=== PATIENT | female | born 1950 | race African-American/Black ===

== ENCOUNTER 2022-10-18 19:17 | Emergency (ER) | payer MEDICARE, SELFPAY ==
[2022-10-18] VITALS (12 sets, daily range): BP systolic 118–150; BP diastolic 61–84; PULSE 57–78; RESP 13–26; TEMP 36.2; O2SAT 98–100
--- NOTE | ~2022-10-18 | CT_ITS ---
EXAMINATION: CT brain wo con DATE: 10/18/2022 20:43 INDICATION: Syncope. Lightheadedness. Dizziness. TECHNIQUE: Computed tomography (CT) of the head was performed without intravenous contrast. The mA wa s adjusted according to patient size. Iterative reconstruction technique was employed. The dose-lengt h product was 605.33 mGy-cm. COMPARISON: None FINDINGS: There is no intracranial hemorrhage, acute infarction, or abnormal intracranial mass lesion . There are scattered areas of low attenuation in the cerebral white matter, which is within normal l imits for the patient's age. The ventricles are normal in size. There is mild mucosal thickening in t he paranasal sinuses. The orbits are normal. The mastoid air cells are normal. IMPRESSION: 1. Normal aging brain. Reviewed, dictated and finalized at location E. IMPRESSION: 1. Normal aging brain.
--- NOTE | ~2022-10-18 | CT_ITS ---
EXAMINATION: CT abdomen pelvis w con DATE: 10/18/2022 20:43 INDICATION: Abdominal pain. Vomiting. TECHNIQUE: Computed tomography (CT) of the abdomen and pelvis was performed with 100 mL Omnipaque 350 intravenous contrast. Automated exposure control and iterative reconstruction technique were employe d. The dose-length product was 1284.67 mGy-cm. COMPARISON: None. FINDINGS: The visualized portions of the lung bases demonstrate mild atelectasis. No pleural effusion . The heart size is normal. No pericardial effusion. The liver is normal. The gallbladder is distende d. The spleen, pancreas, and adrenal glands are normal. There are cysts in the kidneys measuring up t o 2.4 cm on the right. There is diverticulosis of the colon without evidence of diverticulitis. There are no dilated loops of bowel. The appendix is normal. There is a small sliding hiatal hernia. There are no pathologically enlarged lymph nodes. There is no ascites. There is severe thoracic and lumbar spondylosis. IMPRESSION: 1. Small sliding hiatal hernia. 2. Gallbladder distention, which may be secondary to fasting. Correlate with physical exam to exclude acute cholecystitis. Reviewed, dictated and finalized at location E. IMPRESSION: 1. Small sliding hiatal hernia. 2. Gallbladder distention, which may be secondary to fasting. Correlate with ph ysical exam to exclude acute cholecystitis.
--- NOTE | 2022-10-18 19:20 | ED.NAVMDI ---
HPI - Nausea/Vomiting/Diarrhea General Chief complaint: Nausea/Vomiting/Diarrhea Stated complaint: nausea/vomiting Time Seen by Provider: 10/18/22 19:19 History of Present Illness HPI Narrative: Patient is a 72-year-old female with history of hypertension, hyperlipidemia here with nausea, vomiting and syncope. She states she is feeling like her normal self earlier today and went to a pool [employer] with some friends. She states that she started feeling overheated, flushed light headed and nauseous. She vomited several times and had a syncopal episode at the pool [employer]. She denies any head injury. Bystanders note patient lost consciousness for about 1 minute and returned to baseline. She has continued nausea and vomiting. She denies chest pain or shortness of breath. No abdominal pain. No one else sick from the potluck food. No alcohol use today. She does endorse that she had a cervical procedure yesterday where they gave her injections for pain, her neck pain is doing well today. No seizure like activity. Related Data Allergies Allergy/AdvReac Type Severity Reaction Status Date / Time No Known Allergies Allergy Verified 10/18/22 19:31 Review of Systems Review of Systems: CONSTITUTIONAL: Denies fever, chills, or sweats. CARDIOVASCULAR: Denies chest pain, palpitations RESPIRATORY: Denies cough or dyspnea. GASTROINTESTINAL: Nausea, vomiting, Denies abdominal pain or diarrhea. GENITOURINARY: Denies dysuria or hematuria. SKIN: Denies rash or itching. MUSCULOSKELETAL: Denies back pain, joint pain, or myalgia. NEUROLOGIC: Denies headache, numbness, or weakness. Exam Narrative: GENERAL: Well-appearing, well-nourished, actively vomiting HEAD: Normocephalic, atraumatic. EYES: PERRLA and EOMI. ENT: Nares clear. Mucous membranes moist. NECK: Supple. CHEST: Clear to auscultation. No respiratory distress. HEART: Regular rate and rhythm. Normal peripheral pulses. ABDOMEN: Soft, nontender, nondistended. EXTREMITIES: Normal range of motion. No edema. SKIN: Warm, dry, no rash. NEURO: No focal deficits. Alert and oriented x3. PSYCH: Normal mood and affect. Course Course Emergency Course: Patient presented to the ED with complaint of nausea and vomiting. Vitals reviewed and appear stable. Physical exam revealed active vomiting, grossly non tender exam. No focal neurological deficits. Based on the patient's history and physical exam, my differential includes but is not limited to gastritis, gastroenteritis, cholecystitis, pancreatitis, appendicitis. Additionally will do syncope workup. Initial workup includes: CT head, troponins, abdominal lab workup, antiemetics. CT abdomen/pelvis. Patient reevaluated. No additional episodes of emesis. Lab work reviewed: CBC grossly unremarkable, creatinine 1.5, no baseline present. Troponin negative. Awaiting imaging. Imaging reviewed: Negative for acute findings. Distended gall bladder. No tenderness in this area. On reevaluation, the patient states that they are feeling much better. Repeat examination did not show any significant guarding or rebound. Patient tolerating PO. Discussed workup with patient. The patient was given strict return precautions, if they are to develop any worsening abdominal pain, vomiting, or blood in the vomit they are to return to the emergency department immediately. Patient verbally acknowledges understanding these directions. They were advised to follow-up with their PCP in 2 days. The patient verbalizes an understanding of the discharge instructions and agrees with plan. Vital Signs Vital signs: Vital Signs Temperature 97.2 F L 10/18/22 19:18 Pulse Rate 68 10/18/22 19:18 Respiratory Rate 26 H 10/18/22 19:18 Blood Pressure 150/61 H 10/18/22 19:18 Pulse Oximetry 100 10/18/22 19:18 Oxygen Delivery Room Air 10/18/22 19:18 Temperature 97.2 F L 10/18/22 19:18 Pulse Rate 59 L 10/18/22 20:15 Respiratory Rate 14 10/18/22 20:15 Blood Pres
--- NOTE | 2022-10-18 19:28 | ECG_ITS ---
Measurements Intervals [place] Rate: 56 P: 52 HI: 171 QRS: 12 QRSD: 89 T: 28 QT: 392 QTc: 381 Interpretive Statements SINUS BRADYCARDIA OTHERWISE NORMAL ECG NO PREVIOUS ECG AVAILABLE FOR COMPARISON Electronically Signed On 10-19-2022 10:05:06 CDT by Kush Gutiérrez M.D.
[2022-10-18] MEDS: ONDANSETRON INJ 4 MG/2 ML VIAL (19:32)
[2022-10-18 19:39] LABS: Glucose Point of Care 123 mg/dl (65-105)
[2022-10-18] MEDS: SODIUM CHLORIDE 0.9% IV 500 ML 999 ML IV CONT (19:39)
[2022-10-18 20:05] LABS: Basophils Absolute Auto 0.1 K/mm3 (0.0-0.1); Basophils Percent Auto 0.6 % (0.2-1.2); Eosinophils Absolute Auto 0.1 K/mm3 (0-0.3); Eosinophils Percent Auto 1.3 % (0-4.4); Hematocrit 34.6 % (37.0-47.0); Immature Granulocyte Absolute 0.03 K/mm3 (0.00-0.031); Immature Granulocyte Percent A 0.4 % (0-0.5); Lymphocytes Percent Auto 25.4 % (18.3-44.2); Mean Corpuscular HGB Conc 31.8 g/dl (32-36); Mean Corpuscular Hemoglobin 27.6 pg (26-34); Mean Corpuscular Volume 86.7 fl (80-100); Mean Platelet Volume 9.4 fl (7.4-10.4); Monocytes Absolute Auto 0.6 K/mm3 (0.1-0.6); Neutrophils Absolute Auto 5.1 K/mm3 (1.3-6.7); Neutrophils Percent Auto 64.3 % (45.5-73.1); Platelet Count Result 162 k/mm3 (150-375); Red Blood Count 3.99 M/mm3 (4.2-5.4); Red Cell Distribution Width 15.9 % (11.5-14.5); White Blood Count 7.9 K/mm3 (4.5-10.0)
[2022-10-18 20:17] LABS: Alanine Aminotransferase 20 U/L (6-35); Alkaline Phosphatase 77 U/L (38-126); Anion Gap 7 mmol/L (8-16); Aspartate Amino Transferase 28 U/L (14-36); Bilirubin,Total 0.5 mg/dL (0.2-1.3); Blood Urea Nitrogen 33 mg/dL (7-17); Calcium 9.2 mg/dL (8.4-10.2); Carbon Dioxide 22 mmol/L (22-30); Chloride 103 mmol/L (98-107); Estimated CRCL calculation 34 ml/min; Estimated Glomerular Filt Rate 41; Glucose 106 mg/dL (65-110); Lipase 46 U/L (23-300); Potassium 3.7 mmol/L (3.4-5.0); Sodium 132 mmol/L (137-145)
[2022-10-18 20:28] LABS: Troponin I < 0.012 ng/mL (0.000-0.034)
[2022-10-18 21:02] LABS: Appearance Urine Clear (Clear); Bacteria Urine None Seen /hpf; Bilirubin Urine Negative (Negative); Blood Urine Negative (Negative); Color Urine Yellow (Yellow); Glucose Urine UA Negative (Negative); Ketones Urine Negative (Negative); Leukocyte Esterase Ur Trace LEU/UL (Negative); Nitrate Urine Negative (Negative); Non Pathogenic Casts 0-2; Protein Urine Negative (Negative); RBC Urine 0-2 /hpf (0-2); Specific Grav Ur 1.019 (1.001-1.035); Squamous Epithelial Cell Urine None seen /hpf (Few); Urobilinogen Urine 0.2 mg/dL (<2.0); WBC Urine 0-5 /hpf; pH Urine 5.5 (5.0-9.0)
[2022-10-18 21:05] LABS: Add Urine Microscopic? YES
--- NOTE | 2022-10-18 21:12 | PC.NURSE ---
Patient given crackers and water for PO challenge.
== END 2022-10-18 21:33 | disposition home or self-care (01) ==
PROVIDERS: Emergency Provider Student in an Organized Health Care Education/Training Program; PCP Internal Medicine
DX: R11.2 Nausea with vomiting, unspecified (principal); R55 Syncope and collapse; I10 Essential (primary) hypertension; E78.5 Hyperlipidemia, unspecified; R00.1 Bradycardia, unspecified; K44.9 Diaphragmatic hernia without obstruction or gangrene; R93.2 Abnormal findings on diagnostic imaging of liver and biliary tract
CPT/HCPCS: 36415; 70450; 74177; 80053; 81001; 82948; 83690; 84484; 85025; 93005; 96361; 96374; 99284; J2405; J7040; Q9967